=== PATIENT | male | born 1965 | race Two or more races ===

== ENCOUNTER 2020-07-01 09:15 | Inpatient (IN) | payer OTHER ==
[~2020-07-01] VITALS: Ht 190.5 cm; Wt 122.5 kg
[2020-07-01] MEDS ORDERED: AVAPRO150 MG PO (11:22)
[2020-07-01] MEDS ORDERED: ATIVAN2 M1 PO (11:31)
[2020-07-01] MEDS ORDERED: CYMBALTA60 MG PO (11:32)
[2020-07-01] MEDS ORDERED: LYRICA200 MG PO (11:32)
[2020-07-01] MEDS ORDERED: GABAPEN PO (11:32)
[2020-07-01] MEDS ORDERED: DESYREL PO (11:33)
[2020-07-01] MEDS ORDERED: SINGULAIR10 MG PO (11:34)
[2020-07-01] MEDS ORDERED: SEROQUE PO (11:34)
[2020-07-01] MEDS ORDERED: TOPROL XL50 M1 PO (11:34)
[2020-07-12] MEDS ORDERED: BRIMONIDINE TART5 M1 (08:11)
[2020-07-12] MEDS ORDERED: LUMIGAN2.5 M1 (08:11)
[2020-07-12] MEDS ORDERED: TRAZODONE HCL150 MG (08:11)
[2020-07-12] MEDS ORDERED: GABAPENTIN800 M1 (08:11)
[2020-07-12] MEDS ORDERED: QUETIAPINE FUMA50 MG (08:11)
[2020-07-13] MEDS ORDERED: ULTRACET PO (06:14)
== END 2020-07-13 10:07 | disposition home or self-care (01) | DRG 473 ==
LOC: EDSEX 07-04 09:15 → SURH 07-04 09:15 → O/R 07-11 05:15 → SURG 07-11 05:15 → SURH 07-11 07:00 → SURG 07-11 12:05
PROVIDERS: ADMIT Neurological Surgery; ATTEND Neurological Surgery
PROC: 0RB30ZZ Excision of Cervical Vertebral Disc, Open Approach (ICD-10-PCS; 2020-07-11)
PROC: 3E0U0GB Introduction of Recombinant Bone Morphogenetic Protein into Joints, Open Approach (ICD-10-PCS; 2020-07-11)
PROC: 0RG20A0 Fusion of 2 or more Cervical Vertebral Joints with Interbody Fusion Device, Anterior Approach, Anterior Column, Open Approach (ICD-10-PCS; principal; 2020-07-11 07:00)
DX: M48.02 Spinal stenosis, cervical region (principal); I10 Essential (primary) hypertension

== ENCOUNTER 2020-07-01 10:45 | Outpatient (CLI) | payer OTHER ==
[2020-07-01] MEDS ORDERED: AVAPRO150 MG PO (11:22)
[2020-07-01] MEDS ORDERED: ATIVAN2 M1 PO (11:31)
[2020-07-01] MEDS ORDERED: CYMBALTA60 MG PO (11:32)
[2020-07-01] MEDS ORDERED: GABAPEN PO (11:32)
[2020-07-01] MEDS ORDERED: LYRICA200 MG PO (11:32)
[2020-07-01] MEDS ORDERED: DESYREL PO (11:33)
[2020-07-01] MEDS ORDERED: SEROQUE PO (11:34)
[2020-07-01] MEDS ORDERED: TOPROL XL50 M1 PO (11:34)
[2020-07-01] MEDS ORDERED: SINGULAIR10 MG PO (11:34)
== END 2020-07-01 10:58 | disposition home or self-care (01) ==
LOC: LAB 10:45
PROVIDERS: ATTEND Neurological Surgery
DX: I10 Essential (primary) hypertension (principal); Z20.828 Contact with and (suspected) exposure to other viral communicable diseases